=== PATIENT | female | born 1995 | race Caucasian/White ===

== ENCOUNTER 2017-11-15 16:03 | Emergency (ER) | payer OTHER ==
[~2017-11-15] VITALS: Ht 154.9 cm; Wt 64.4 kg
[~2017-11-15 16:03] MED LIST: BACTRIM DS 8001 TA1 PO; PYRIDIUM200 M1 PO; ZITHROMAX250 MG PO
[2017-11-15] MEDS ORDERED: AUGMENTIN 875875 MG PO (17:13)
[2017-11-15] MEDS ORDERED: PEPCID20 MG PO (17:13)
[2017-11-15] MEDS ORDERED: FLONASE ALLERG9.9 ML NAS (17:13)
[2017-11-15] MEDS ORDERED: ALLEGRA-D 24 H1 EACH PO (17:15)
== END 2017-11-15 17:19 | disposition home or self-care (01) ==
LOC: ED 16:03
DX: J01.10 Acute frontal sinusitis, unspecified (principal); K21.9 Gastro-esophageal reflux disease without esophagitis

== ENCOUNTER 2018-05-08 18:12 | Emergency (ER) | payer OTHER ==
[~2018-05-08] VITALS: Ht 154.9 cm; Wt 65.8 kg
[~2018-05-08 18:12] MED LIST changes: +ALLEGRA-D 24 H1 EACH PO; +AUGMENTIN 875875 MG PO; +FLONASE ALLERG9.9 ML NAS; +PEPCID20 MG PO
== END 2018-05-08 19:03 | disposition home or self-care (01) ==
LOC: ED 18:12
DX: G43.909 Migraine, unspecified, not intractable, without status migrainosus (principal)

== ENCOUNTER 2018-06-18 10:23 | Emergency (ER) | payer OTHER ==
[~2018-06-18] VITALS: Ht 154.9 cm; Wt 68.9 kg
[2018-06-18] MEDS ORDERED: PEPCID40 MG PO (10:40)
[2018-06-18] MEDS ORDERED: TOPIRAMATE25 M1 PO (10:40)
[2018-06-18] MEDS ORDERED: BENTYL20 MG/2 ML PO (10:41)
[2018-06-18 10:44] LABS: BILIRUBIN NEGATIVE (NEGATIVE); BLOOD 3+ (NEGATIVE); CLARITY CLOUDY (CLEAR); COLOR YELLOW (YELLOW); GLUCOSE NEGATIVE (NEGATIVE); KETONE NEGATIVE (NEGATIVE); LEUKO ESTERASE NEGATIVE (NEGATIVE); NITRITE NEGATIVE (NEGATIVE); PH 7.5 (5.0-9.0); SPECIFIC GRAVITY 1.015 (1.005-1.030); UROBILINOGEN 0.2 E.U./dl (0.2-1.0)
[2018-06-18 10:50] LABS: BACTERIA 2+; EPITHELIAL CELLS 16-20; MUCOUS 1+; RBC TNTC rbc/hpf (0-2); WBC 16-20 wbc/hpf (0-5)
[2018-06-18 10:55] LABS: BASO % 0.5 % (0.0-1.0); EOS # 0.4 10*3/uL (0.0-0.4); EOS % 6.6 % (1.0-4.0); HEMOGLOBIN 12.3 g/dl (12.0-16.0); LYMPH # 1.2 10*3/uL (1.3-4.4); LYMPH % 19.6 % (27.0-41.0); MEAN CORPUSCULAR HGB 26.2 pg (27.0-31.0); MEAN CORPUSCULAR HGB CONC 31.5 g/dl (33.0-37.0); MEAN PLATELET VOLUME 11.2 fl (9.6-12.3); MONO # 0.6 10*3/uL (0.1-1.0); MONO % 10.2 % (3.0-9.0); NEUT # 3.9 10*3/uL (2.3-7.9); NEUT % 62.6 % (47.0-73.0); PLATELET COUNT AUTOMATED 210 10*3/uL (130-400); WHITE BLOOD COUNT 6.2 10*3/uL (4.8-10.8)
[2018-06-18 11:11] LABS: ALKALINE PHOSPHATASE 85 U/L (45-117); BUN 9 mg/dl (7-24); CHLORIDE 108 mmol/L (98-107); CREATININE 0.84 mg/dL (0.55-1.02); LIPASE 156 U/L (73-393); POTASSIUM 3.8 mmol/L (3.5-5.1); SGOT/AST 12 IU/L (3-35); SGPT/ALT 21 U/L (12-78); SODIUM 140 mmol/L (136-145); TOTAL PROTEIN 7.8 gm/dL (6.4-8.2)
== END 2018-06-18 12:58 | disposition home or self-care (01) ==
LOC: ED 10:23
PROVIDERS: Internal Medicine; Nurse Practitioner Family
DX: R10.32 Left lower quadrant pain (principal); R19.7 Diarrhea, unspecified; R11.0 Nausea; Z79.899 Other long term (current) drug therapy

== ENCOUNTER 2019-02-22 14:10 | Emergency (ER) | payer OTHER ==
[~2019-02-22] VITALS: Ht 162.5 cm; Wt 75.7 kg
[~2019-02-22 14:10] MED LIST changes: +BENTYL20 MG/2 ML PO; +PEPCID40 MG PO; +TOPIRAMATE25 M1 PO
[2019-02-22 14:35] LABS: BASO % 0.2 % (0.0-1.0); EOS # 0.1 10*3/uL (0.0-0.4); EOS % 1.2 % (1.0-4.0); HEMATOCRIT 39.8 % (37.0-47.0); HEMOGLOBIN 12.7 g/dl (12.0-16.0); LYMPH # 2.4 10*3/uL (1.3-4.4); LYMPH % 25.8 % (27.0-41.0); MEAN CELL VOLUME 83.4 fl (81.0-99.0); MEAN CORPUSCULAR HGB 26.6 pg (27.0-31.0); MEAN CORPUSCULAR HGB CONC 31.9 g/dl (33.0-37.0); MONO # 0.7 10*3/uL (0.1-1.0); MONO % 7.5 % (3.0-9.0); NEUT % 64.8 % (47.0-73.0); PLATELET COUNT AUTOMATED 234 10*3/uL (130-400); RED BLOOD COUNT 4.77 10*6/uL (4.10-5.10); RED CELL DISTRI WIDTH 12.8 % (0-14.5); WHITE BLOOD COUNT 9.2 10*3/uL (4.8-10.8)
[2019-02-22 14:38] LABS: BILIRUBIN NEGATIVE (NEGATIVE); BLOOD NEGATIVE (NEGATIVE); CLARITY SL CLOUDY (CLEAR); COLOR YELLOW (YELLOW); GLUCOSE NEGATIVE (NEGATIVE); KETONE TRACE (NEGATIVE); LEUKO ESTERASE NEGATIVE (NEGATIVE); NITRITE NEGATIVE (NEGATIVE); SPECIFIC GRAVITY 1.025 (1.005-1.030); UROBILINOGEN 0.2 E.U./dl (0.2-1.0)
[2019-02-22 14:47] LABS: BACTERIA 1+
[2019-02-22 14:50] LABS: ALBUMIN 3.9 gm/dl (3.1-4.5); ALKALINE PHOSPHATASE 91 U/L (45-117); BUN 11 mg/dl (7-24); CHLORIDE 107 mmol/L (98-107); CREATININE 0.63 mg/dL (0.55-1.02); LIPASE 124 U/L (73-393); POTASSIUM 3.8 mmol/L (3.5-5.1); SGOT/AST 16 IU/L (3-35); SGPT/ALT 30 U/L (12-78); SODIUM 137 mmol/L (136-145); TOTAL PROTEIN 8.1 gm/dL (6.4-8.2)
== END 2019-02-22 16:26 | disposition home or self-care (01) ==
LOC: ED 14:10
PROVIDERS: Emergency Medicine; Internal Medicine
DX: R10.2 Pelvic and perineal pain (principal); K21.9 Gastro-esophageal reflux disease without esophagitis; G43.909 Migraine, unspecified, not intractable, without status migrainosus; Z79.899 Other long term (current) drug therapy

== ENCOUNTER 2020-12-09 11:04 | Emergency (ER) | payer OTHER ==
[~2020-12-09] VITALS: Ht 154.9 cm; Wt 66.2 kg
[2020-12-09] MEDS ORDERED: AMOXICILLIN500 M3 PO (11:31)
== END 2020-12-09 11:34 | disposition home or self-care (01) ==
LOC: ED 11:04
DX: J32.9 Chronic sinusitis, unspecified (principal); K21.9 Gastro-esophageal reflux disease without esophagitis; G43.909 Migraine, unspecified, not intractable, without status migrainosus; Z20.822 Contact with and (suspected) exposure to COVID-19

== ENCOUNTER → 2021-01-08 | Outpatient (CLI) | payer OTHER ==
[~2021-01-08] MED LIST changes: +AMOXICILLIN500 M3 PO
== END | disposition home or self-care (01) ==
LOC: CT 12:41
PROVIDERS: ATTEND Preventive Medicine Occupational Medicine
DX: I25.10 Atherosclerotic heart disease of native coronary artery without angina pectoris (principal); R91.8 Other nonspecific abnormal finding of lung field

== ENCOUNTER → 2021-03-22 | Outpatient (CLI) | payer OTHER ==
[2021-03-22 14:09] LABS: MEAN CELL VOLUME 85.7 fl (81.0-99.0); MEAN CORPUSCULAR HGB 26.5 pg (27.0-31.0); PLATELET COUNT AUTOMATED 272 10*3/uL (130-400); RED CELL DISTRI WIDTH 12.5 % (0-14.5); RETICULOCYTE % 0.84 % (0.50-2.50); WHITE BLOOD COUNT 6.8 10*3/uL (4.8-10.8)
[2021-03-22 14:35] LABS: ALBUMIN 3.8 gm/dl (3.1-4.5); ALKALINE PHOSPHATASE 54 U/L (45-117); BUN 8 mg/dl (7-24); CHLORIDE 107 mmol/L (98-107); CHOLESTEROL 179 mg/dL (<200); GAMMA GLUTAMYL TRANSPEPTIDASE 22 U/L (5-55); LDL CHOLESTEROL 50 mg/dL (9-159); POTASSIUM 3.6 mmol/L (3.5-5.1); SODIUM 139 mmol/L (136-145); THYROXINE (T4) TOTAL 8.2 ug/dl (4.8-13.9); TOTAL PROTEIN 7.7 gm/dL (6.4-8.2); TRIGLYCERIDES 370 mg/dl (<150); URIC ACID 4.9 mg/dL (2.6-6.0)
[2021-03-22 14:45] LABS: CREATININE 0.68 mg/dL (0.55-1.02); IRON 103 ug/dL (50-170); SGOT/AST 12 IU/L (3-35); SGPT/ALT 23 U/L (12-78); T3 UPTAKE 33 % (31-39); THYROID STIM HORMONE (HS) 0.603 uIU/ml (0.358-4.75); TOTAL IRON BINDING CAPACITY 404 ug/dl (250-450)
[2021-03-22 14:55] LABS: BETA-HCG, QUANT < 1.0 mIU/mL (1-3)
[2021-03-22 15:21] LABS: VITAMIN D, 25-HYDROXY 26.5 ng/mL (30-100)
[2021-03-22 15:22] LABS: FERRITIN 15.7 ng/mL (10.0-291.0)
[2021-03-22 15:43] LABS: ATYPICAL LYMPHS 2 % (0-0); BASOPHILS 1 % (0-1); PLATELET SUFFICIENCY NORMAL (NORMAL); TOTAL CELLS COUNTED 100 #CELLS
[2021-03-23 06:07] LABS: TOTAL PROTEIN, SERUM 7.7 g/dL (6.0-8.5)
[2021-03-23 08:09] LABS: FOLLICLE STIMULATING HORMONE 6.2 mIU/mL (.); LUTEINIZING HORMONE 3.4 mIU/mL (.); PROGESTERONE 0.2 ng/mL (.); PROLACTIN 11.5 ng/mL (4.8-23.3); RHEUMATOID ARTHRITIS FACTOR <10.0 IU/mL (0.0-13.9)
[2021-03-23 13:06] LABS: ANTI-DSDNA ANTIBODIES <1 IU/mL (0-9)
[2021-03-23 16:08] LABS: A/G RATIO 1.3 (0.7-1.7); ALBUMIN 4.4 g/dL (2.9-4.4); ALPHA-1-GLOBULIN 0.2 g/dL (0.0-0.4); ALPHA-2-GLOBULIN 0.8 g/dL (0.4-1.0); BETA GLOBULIN 1.1 g/dL (0.7-1.3); GAMMA GLOBULIN 1.2 g/dL (0.4-1.8); GLOBULIN, TOTAL 3.3 g/dL (2.2-3.9); M-SPIKE Not Observed g/dL (Not Observed)
[2021-03-24 01:06] LABS: INSULIN-LIKE GROWTH FACTOR-1 270 ng/mL (101-347)
== END ==
LOC: LAB 13:10
PROVIDERS: ATTEND Family Medicine
DX: M79.642 Pain in left hand (principal); M79.641 Pain in right hand; M25.532 Pain in left wrist; M25.531 Pain in right wrist; R79.89 Other specified abnormal findings of blood chemistry; R53.83 Other fatigue; E55.9 Vitamin D deficiency, unspecified

== ENCOUNTER → 2021-04-13 | Outpatient (CLI) | payer OTHER | END | disposition home or self-care (01) | LOC: MRI 07:39 | PROVIDERS: ATTEND Family Medicine | DX: G93.0 Cerebral cysts (principal); H93.19 Tinnitus, unspecified ear; H81.4 Vertigo of central origin ==

== ENCOUNTER 2021-07-25 15:48 | Emergency (ER) | payer OTHER | END 2021-07-25 21:09 | disposition left against medical advice (07) | LOC: ED 15:48 | DX: T78.40XA Allergy, unspecified, initial encounter (principal); X58.XXXA Exposure to other specified factors, initial encounter; Z53.21 Procedure and treatment not carried out due to patient leaving prior to being seen by health care provider ==

== ENCOUNTER → 2022-02-18 | Outpatient (CLI) | payer OTHER | END | disposition home or self-care (01) | LOC: US 13:40 | PROVIDERS: ATTEND Nurse Practitioner Women's Health | DX: N88.8 Other specified noninflammatory disorders of cervix uteri (principal); N94.89 Other specified conditions associated with female genital organs and menstrual cycle; R10.2 Pelvic and perineal pain ==

== ENCOUNTER 2025-07-27 16:50 | Emergency (ER) | payer OTHER ==
[~2025-07-27] VITALS: Ht 154.9 cm; Wt 74.8 kg
== END 2025-07-27 18:07 | disposition home or self-care (01) ==
LOC: ED 16:50
DX: S61.012A Laceration without foreign body of left thumb without damage to nail, initial encounter (principal); S61.213A Laceration without foreign body of left middle finger without damage to nail, initial encounter; W45.8XXA Other foreign body or object entering through skin, initial encounter; Y93.89 Activity, other specified; Y92.89 Other specified places as the place of occurrence of the external cause; Y99.8 Other external cause status